=== PATIENT | male | born 1990 | race African-American/Black ===

== ENCOUNTER 2016-10-30 14:12 | Day surgery (SDC) | payer OTHER ==
[~2016-10-30] VITALS: Ht 177.8 cm; Wt 84.8 kg
[2016-10-30 14:45] VITALS: BP 101/70; PULSE 60; TEMP 98.1
[2016-10-30] MEDS ORDERED: NEXIUM 40MG40 MG PO (14:52)
[2016-10-30] MEDS ORDERED: OMEGA-3 1000 MG1 CAP PO (14:54)
[2016-10-30] MEDS ORDERED: MULTI VITAMINS1 TAB PO (14:57)
[2016-10-30 16:10] VITALS: BP 101/70; PULSE 77
[2016-10-30 16:25] VITALS: BP 99/61; PULSE 63
[2016-10-30 16:34] VITALS: BP 107/54; PULSE 62
== END 2016-10-30 16:49 | disposition home or self-care (01) ==
LOC: SDCO 14:12
DX: D12.2 Benign neoplasm of ascending colon (principal); K62.89 Other specified diseases of anus and rectum; K59.00 Constipation, unspecified; Z79.82 Long term (current) use of aspirin; Z79.899 Other long term (current) drug therapy; Z87.891 Personal history of nicotine dependence
CPT/HCPCS: OP; J2250; J3010; J7030